=== PATIENT | female | born 1965 | race African-American/Black ===

== ENCOUNTER 2018-07-24 07:00 | Emergency (ER) | payer SELFPAY ==
[2018-07-24] MEDS ORDERED: Acetaminophen 500 MG TAB ONE (07:52)
--- NOTE | 2018-07-24 08:35 | RAD ---
LEFT SHOULDER THREE VIEWS: History: Pain. FINDINGS: Glenohumeral joint space is preserved. No dislocation or fracture. Left ribs are unremarkable. IMPRESSION: No fracture or dislocation. POS: [facility]
== END 2018-07-24 09:15 | disposition home or self-care (01) ==
LOC: ERS 07:00
DX: M25.512 Pain in left shoulder (principal)
CPT/HCPCS: 99281